=== PATIENT | female | born 1945 | race Caucasian/White ===

== ENCOUNTER 2018-06-18 09:00 | Emergency (ER) | payer MEDICARE, OTHER | END 2018-06-18 09:30 | disposition home or self-care (01) | LOC: FTE 09:00 | DX: K64.9 Unspecified hemorrhoids (principal); I10 Essential (primary) hypertension; I25.2 Old myocardial infarction; Z79.84 Long term (current) use of oral hypoglycemic drugs | CPT/HCPCS: 99282 ==

== ENCOUNTER 2018-08-28 06:49 | Day surgery (SDC) | payer MEDICARE, OTHER | END 2018-08-28 11:13 | disposition home or self-care (01) | LOC: GIL 06:49 | DX: R19.4 Change in bowel habit (principal); K29.50 Unspecified chronic gastritis without bleeding; K44.9 Diaphragmatic hernia without obstruction or gangrene; K21.9 Gastro-esophageal reflux disease without esophagitis; E11.9 Type 2 diabetes mellitus without complications; I10 Essential (primary) hypertension | CPT/HCPCS: 43239; 82962; 88305; 88312 ==